=== PATIENT | female | born 2000 ===

== ENCOUNTER 2021-10-04 18:16 | Outpatient (CLI) | payer SELFPAY ==
[2021-10-04 19:30] VITALS: BP 112/71
[2021-10-04 19:55] LABS: BILIRUBIN,URINE NEGATIVE (NEGATIVE); CLARITY,URINE CLEAR; COLOR,URINE YELLOW; GLUCOSE, URINE (UA) NEGATIVE (NEGATIVE); KETONES,URINE TRACE (NEGATIVE); LEUKOCYTE ESTERASE ,URINE TRACE (NEGATIVE); NITRITE,URINE POSITIVE (NEGATIVE); PROTEIN,URINE NEGATIVE (NEGATIVE)
[2021-10-04 20:05] LABS: BACTERIA,URINE LARGE /HPF
[2021-10-04] MEDS ORDERED: ACETAMINOPHEN 500 MG TAB (TYLENOL) ONE (20:07)
[2021-10-04] MEDS ORDERED: ACETAMINOPHEN 500 MG TAB (TYLENOL) PO ONE (20:12)
--- NOTE | 2021-10-05 08:34 | Physician Query-Final Dx ---
Clinic Account Progress/Dx Physician Query: Please give diagnosis Please include # weeks gestation Date of Service Oct 04, 2021 at 18:16 SOMMER,OctOct 05, 2021 08:34
== END 2021-10-04 20:43 ==
LOC: WSo 18:16 → LDRP 18:16 → WSo 20:43
PROVIDERS: ATTEND Family Medicine
DX: O26.899 Other specified pregnancy related conditions, unspecified trimester (principal); R10.9 Unspecified abdominal pain; Z3A.00 Weeks of gestation of pregnancy not specified
CPT/HCPCS: 81000; 87088; G0463; 99214

== ENCOUNTER 2021-10-10 00:29 | Inpatient (IN) | payer SELFPAY ==
[2021-10-10] VITALS (29 sets, daily range): BP systolic 77–141; BP diastolic 44–107
[~2021-10-10] VITALS: Ht 154.9 cm; Wt 74.5 kg
[2021-10-10] MEDS ORDERED: MINERAL OIL CONCENTRATE 99.9% 15 ML UDC TOP PRN (01:45)
[2021-10-10] MEDS ORDERED: D5 LR IV SOLUTION 1,000 ML IV ONE (01:48)
[2021-10-10 01:52] LABS: BILIRUBIN,URINE NEGATIVE (NEGATIVE); CLARITY,URINE CLEAR; COLOR,URINE YELLOW; GLUCOSE, URINE (UA) NEGATIVE (NEGATIVE); KETONES,URINE NEGATIVE (NEGATIVE); LEUKOCYTE ESTERASE ,URINE 1+ (NEGATIVE); NITRITE,URINE NEGATIVE (NEGATIVE); PROTEIN,URINE NEGATIVE (NEGATIVE)
[2021-10-10] MEDS: D5 LR IV SOLUTION 1,000 ML IV SCH ×2 (02:09→08:57)
[2021-10-10 02:10] LABS: BACTERIA,URINE NEGATIVE /HPF; WBC,URINE 0-2 /HPF
[2021-10-10 02:32] LABS: BASOPHILS % (AUTO) 1 % (0-10); EOSINOPHILS # (AUTO) 0.2 10^3/uL (0.0-0.3); EOSINOPHILS % (AUTO) 2 % (0-10); HEMATOCRIT 32 % (35-52); HEMOGLOBIN 9.8 g/dL (11.5-16.0); LYMPHOCYTES # (AUTO) 1.2 10^3/uL (1.0-4.0); LYMPHOCYTES % (AUTO) 14 % (12-44); MEAN CORPUSCULAR HEMOGLOBIN 27 pg (25-34); MEAN CORPUSCULAR HGB CONC 31 g/dL (32-36); MEAN CORPUSCULAR VOLUME 88 fL (80-99); MEAN PLATELET VOLUME 10.6 fL (9.0-12.2); MONOCYTES # (AUTO) 0.4 10^3/uL (0.0-1.0); MONOCYTES % (AUTO) 5 % (0-12); NEUTROPHILS # (AUTO) 6.7 10^3/uL (1.8-7.8); NEUTROPHILS % (AUTO) 78 % (42-75); PLATELET COUNT 183 10^3/uL (130-400); WHITE BLOOD COUNT 8.7 10^3/uL (4.3-11.0)
[2021-10-10] MEDS ORDERED: BUTORPHANOL INJ 2 MG/ML (STADOL) VIAL ONE (04:22)
[2021-10-10] MEDS: BUTORPHANOL INJ 2 MG/ML (STADOL) VIAL IV PRN ×2 (04:24→09:30)
[2021-10-10] MEDS ORDERED: PREN-8 PO (05:44)
[2021-10-10] MEDS ORDERED: CEPH500T PO (05:45)
[2021-10-10] MEDS ORDERED: CATHETER FLUSH 10 ML SYR IV SCH (06:00)
[2021-10-10] MEDS ORDERED: OXYTOCIN PRE-MIX DRIP 500 ML IV SCH ×2 (07:00→12:30)
--- NOTE | 2021-10-10 07:50 | History & Physical-OB ---
OB - Chief Complaint & HPI Date/Time Date of Admission: Date of Admission: Oct 10, 2021 at 01:40 Date seen by a Provider: Oct 10, 2021 Time Seen by a Provider: 08:00 Chief Complaint/History OB-Reason for Admission/Chief: Rupture of Membranes (at term) Hx : 3 Hx Para: 2 Expected Date of Delivery: Oct 19, 2021 Gestational Age in Weeks: 38 Gestational Age in Days: 5 Admission Nurse Assessment Rev: Yes History of Labs Negative Allergies and Home Medications Allergies Coded Allergies: No Known Drug Allergies (Unverified , 10/04/21) Patient Home Medication List Home Medication List Reviewed: Yes Cephalexin (Cephalexin) 500 Mg Tablet, 500 MG PO TID, (Reported) Entered as Reported by: ROSA MERCEDES on 10/10/2145 Last Action: New Order Vit W-Ca,Fe,FA(<1 mg) ( Formula) 1 Each Tablet, 1 EACH PO DAILY, (Reported) Entered as Reported by: ROSA MERCEDES on 10/10/2144 Last Action: New Order OB - History Hx of Present Care: Yes Ultrasounds: Normal mid trimester US Obstetrical Complications: None Medical Complications: None Patient Past Medical History no chronic medical problems Social History/Family History 2nd Hand Smoke Exposure: No Immunizations Influenza Vaccine Up-to-Date: Yes; Up-to-Date First/Initial COVID19 Vaccine: 1 dose in Jul 2021 COVID19 Vaccine Finisher Hand: [employer] OB - Admission Exam Physical Exam Vitals: Vital Signs 10/10/21 10/10/21 10/10/21 02:00 04:00 06:11 Temp 35.8 Pulse 77 Resp 18 B/P (MAP) 120/71 (87) Pulse Ox 99 O2 Delivery Room Air HEENT: Moist Membranes Heart: Rhythm Normal Lungs: Clear Abdomen: Gravid Cervical Dilatation: 2cm (on presentation) Effacement: 75% Station: -3 Membranes: Ruptured Amniotic Fluid: Clear Heart Rate: 140's Accelerations: Accelerations Present Decelerations: No Decelerations Short Term Variability: Present Contractions on Admission: < 5 Minutes Apart Intensity: Mild Labs Laboratory Tests Test 10/10/21 00:40 10/10/21 01:00 10/10/21 02:22 Range/Units Urine Color YELLOW Urine Clarity CLEAR Urine pH 7.0 5-9 Urine Specific [place] 1.015 L 1.016-1.022 Urine Protein NEGATIVE NEGATIVE Urine Glucose (UA) NEGATIVE NEGATIVE Urine Ketones NEGATIVE NEGATIVE Urine Nitrite NEGATIVE NEGATIVE Urine Bilirubin NEGATIVE NEGATIVE Urine Urobilinogen 0.2 < = 1.0 MG/DL Urine Leukocyte Esterase 1+ H NEGATIVE Urine RBC (Auto) 3+ H NEGATIVE Urine RBC 10-25 H /HPF Urine WBC 0-2 /HPF Urine Squamous Epithelial Cells 2-5 /HPF Urine Crystals NONE /LPF Urine Bacteria NEGATIVE /HPF Urine Casts NONE /LPF Urine Mucus NEGATIVE /LPF Urine Culture Indicated NO Membranes Rupture POSITIVE White Blood Count 8.7 4.3-11.0 10^3/uL Red Blood Count 3.63 L 3.80-5.11 10^6/uL Hemoglobin 9.8 L 11.5-16.0 g/dL Hematocrit 32 L 35-52 % Mean Corpuscular Volume 88 80-99 fL Mean Corpuscular Hemoglobin 27 25-34 pg Mean Corpuscular Hemoglobin Concent 31 L 32-36 g/dL Red Cell Distribution Width 13.4 10.0-14.5 % Platelet Count 183 130-400 10^3/uL Mean Platelet Volume 10.6 9.0-12.2 fL Immature Granulocyte % (Auto) 1 % Neutrophils (%) (Auto) 78 H 42-75 % Lymphocytes (%) (Auto) 14 12-44 % Monocytes (%) (Auto) 5 0-12 % Eosinophils (%) (Auto) 2 0-10 % Basophils (%) (Auto) 1 0-10 % Neutrophils # (Auto) 6.7 1.8-7.8 10^3/uL Lymphocytes # (Auto) 1.2 1.0-4.0 10^3/uL Monocytes # (Auto) 0.4 0.0-1.0 10^3/uL Eosinophils # (Auto) 0.2 0.0-0.3 10^3/uL Basophils # (Auto) 0.0 0.0-0.1 10^3/uL Immature Granulocyte # (Auto) 0.1 0.0-0.1 10^3/uL OB - Assessment/Plan/Diagnosis Assessment Assessment: rupture of membranes (at term) Admission Dx 1. IUP at term 38 weeks with SROM Admission Status: Inpatient Order (span 2 midnights) Reason for Inpatient Admission: L&D Plan Plan: Other Other Plan -Pitocin -Stadol for pain relief -she doesn't desire epidural RAFAEL DAVIS MD Oct 10, 2021 07:50
[2021-10-10] MEDS ORDERED: fentaNYL 2 mcg/ml BUPIVA 0.125 0 ML ONE (08:54)
[2021-10-10] MEDS ORDERED: LACTATED RINGERS 1,000 ML IV ONE (08:54)
--- NOTE | 2021-10-10 12:27 | OB Labor & Delivery Record ---
L&D History Date of Service Date of Service: Oct 10, 2021 History Expected Date of Delivery: Oct 19, 2021 Gestational Age in Weeks: 38 Hx : 3 Hx Para: 3 Complications Events: Routine care Operative Indications (Cesarea: N/A-Vaginal Delivery Intrapartal Events: None L&D Stage1 Stage One Onset of Labor - Date: Oct 09, 2021 Onset of Labor - Time: 23:00 Monitors and Tracing Monitor Mode: External Heart Rate: 125 Monitor Accelerations: Uniform Monitor Decelerations: None Station: -2 Senior Living Variability: Average (6-10) Short Term Variability: Present Presentation: Vertex Vital Signs VS - Last 72 Hours, by Label 10/10/21 10/10/21 10/10/21 10/10/21 01:00 02:00 03:00 04:00 Temp 36.0 36.0 35.8 Pulse 126 126 94 75 Resp 18 18 18 18 B/P (MAP) 117/67 (84) 121/60 (80) 114/73 (87) Pulse Ox 99 99 O2 Delivery Room Air Room Air Room Air Room Air 10/10/21 10/10/21 10/10/21 10/10/21 05:00 06:00 06:11 07:40 Temp 36.0 Pulse 80 74 77 85 Resp 18 18 18 18 B/P (MAP) 116/73 (87) 101/61 (74) 120/71 (87) 109/70 (83) O2 Delivery Room Air Room Air Room Air Room Air 10/10/21 10/10/21 10/10/21 10/10/21 07:55 08:25 08:40 08:55 Pulse 85 93 104 110 Resp 20 20 20 20 B/P (MAP) 141/107 (118) 106/63 (77) 109/65 (80) 115/77 (90) O2 Delivery Room Air Room Air Room Air Room Air 10/10/21 10/10/21 10/10/21 10/10/21 09:10 09:25 09:40 09:55 Pulse 83 93 68 81 Resp 20 20 20 20 B/P (MAP) 113/70 (84) 103/56 (72) 77/47 (57) 101/54 (70) O2 Delivery Room Air Room Air Room Air Room Air 1/05/2410/10/21 10/10/21 10:10 10:28 10:41 Temp 36.2 Pulse 77 83 83 Resp 20 20 20 B/P (MAP) 97/54 (68) 104/54 (71) 127/74 (91) O2 Delivery Room Air Room Air Room Air Signs of Distress by FHT Signs of Distress no Rupture of Membranes Spontaneous Ruture of Membrane: Yes Amniotic Membrane Rupture Time: 2340 Amniotic Membrane Fluid Desc.: Clear Induction/Anesthesia Medications Stadol 1mg x 2 doses L&D Stage2 Stage Two Stage II Date: Oct 10, 2021 Stage II Time: 11:19 Monitors and Tracing Monitor Mode: External Heart Rate: 125 Monitor Accelerations: Uniform Monitor Decelerations: None Food Service Utility Worker Variability: Average (6-10) Short Term Variability: Present Position: Left Occiput Anterior Presentation: Vertex Signs of Distress by FHT Signs of Distress no Cord Descript/Complications Cord Vessel Description: 3 Vessels Delivery Type Delivery Method: Spontaneous Vaginal Anterior Shoulder: Left Episiotomy/Perineal Laceration Laceraction(s)/Extensions: No Condition of Infant Delivery 1 minute Comment: 8 5 minute Comment: 9 Condition of Condition of : Living Exam: No Observed Abnormalities Resuscitation Resuscitation: N/A - Spontaneous Resp L&D Stage3 Stage Three Stage III Date: Oct 10, 2021 Stage III Time: 11:26 Pictocin Pitocin Administration mu/min: 6 Pitocin ml/hr: 6 Placenta Delivery Placenta Delivery: Spontaneous Delivery Summary Summary Estimated blood loss (mL): 150 Condition of Delivery Examined: Cervix Examined Post Hemorrhage: No Intervention Required none RAFAEL DAVIS MD Oct 10, 2021 12:27
[2021-10-10] MEDS ORDERED: BENZOCAINE/MENTHOL (DERMOPLAST) 56 ML CAN TP PRN (12:30)
[2021-10-10] MEDS ORDERED: WITCH HAZEL(TUCKS) 40 EA JAR TOP PRN (12:30)
[2021-10-10] MEDS ORDERED: TETANUS,DIPTH,PERTUSS P/F (BOOSTRIX) 0.5 ML VIAL IM ONE (12:30)
[2021-10-10] MEDS ORDERED: NALOXONE 0.4 MG/ML 1 ML (NARCAN) VIAL IV PRN (12:30)
[2021-10-10] MEDS ORDERED: MEASLES,MUMPS,RUBELLA 1 EA INJ SQ ONE (12:30)
[2021-10-10] MEDS: ACETAMINOPHEN 500 MG TAB (TYLENOL) PO SCH ×2 (18:03→23:44)
[2021-10-10] MEDS: IBUPROFEN 600 MG (MOTRIN) TAB PO SCH ×2 (18:03→23:44)
[2021-10-10] MEDS: CATHETER FLUSH 10 ML SYR IV SCH ×2 (19:59→21:23)
[2021-10-10] MEDS: DOCUSATE SODIUM 100 MG (COLACE) CAP PO SCH (21:19)
[2021-10-11 01:19] VITALS: BP 98/52
[2021-10-11] MEDS: CATHETER FLUSH 10 ML SYR IV SCH (02:54)
[2021-10-11 05:42] VITALS: BP 106/65
[2021-10-11] MEDS: ACETAMINOPHEN 500 MG TAB (TYLENOL) PO SCH (05:44)
[2021-10-11] MEDS: IBUPROFEN 600 MG (MOTRIN) TAB PO SCH ×2 (05:44→11:49)
[2021-10-11 06:10] LABS: BASOPHILS % (AUTO) 0 % (0-10); EOSINOPHILS # (AUTO) 0.2 10^3/uL (0.0-0.3); EOSINOPHILS % (AUTO) 2 % (0-10); HEMATOCRIT 28 % (35-52); HEMOGLOBIN 8.7 g/dL (11.5-16.0); LYMPHOCYTES # (AUTO) 1.7 10^3/uL (1.0-4.0); LYMPHOCYTES % (AUTO) 15 % (12-44); MEAN CORPUSCULAR HEMOGLOBIN 27 pg (25-34); MEAN CORPUSCULAR HGB CONC 31 g/dL (32-36); MEAN CORPUSCULAR VOLUME 86 fL (80-99); MEAN PLATELET VOLUME 10.1 fL (9.0-12.2); MONOCYTES # (AUTO) 0.6 10^3/uL (0.0-1.0); MONOCYTES % (AUTO) 5 % (0-12); NEUTROPHILS # (AUTO) 8.9 10^3/uL (1.8-7.8); NEUTROPHILS % (AUTO) 77 % (42-75); PLATELET COUNT 228 10^3/uL (130-400); WHITE BLOOD COUNT 11.5 10^3/uL (4.3-11.0)
--- NOTE | 2021-10-11 08:35 | Discharge Summary ---
Diagnosis/Chief Complaint Date of Admission Oct 10, 2021 at 01:40 Date of Discharge October 11, 2021 Admission Diagnosis Admission Diagnosis 1. Intrauterine at 38 weeks gestation 2. Anemia most likely iron deficiency from Discharge Diagnosis 1. Intrauterine at 38 weeks gestation 2. 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 Her EDC is October 19, 2021 which correlated to 38 weeks and 5 days gestation. Her GBS status at 36 weeks gestation was noted to be negative. Discharge Summary-OBS Procedures 1. Spontaneous vaginal delivery Discharge Physical Examination Allergies: Coded Allergies: No Known Drug Allergies (Unverified , 10/04/21) Vitals & I&Os Intake and Output 10/11/21 00:00 Intake Total 500 ml Balance 500 ml Vital Sign - Last 12Hours Date Time Temp Pulse Resp B/P (MAP) Pulse Ox O2 Delivery O2 Flow Rate FiO2 10/11/21 05:42 36.5 84 81 106/65 (79) Room Air 10/10/21 02:00 99 General Appearance: No Acute Distress Respiratory: Clear to Auscultation Cardiovascular: Regular Rate Abdominal: Normal Bowel Sounds, Soft (with uterus firm) Neuro: Normal Speech Hospital Course Was the Problem List Reviewed?: Yes following admission on October 10, 2021 patient underwent routine antepartum care orders. She continued to contract and ultimately went on to completion. She delivered over an intact perineum at 1119 on October 10, 2021. Patient delivered a term viable female with Apgars of 8 at 1 minute and 9 at 5 minutes. See labor and delivery note for full details. Following delivery she underwent routine care orders. There was no complications of urinary remainder of hospital stay. She tolerated regular diet. She was without any chest pain or leg pain. Her hemoglobin in the morning of October 11 was 8.7 compared to admission of 9.8. She was instructed to utilize iron on an outpatient basis daily. She was eager for dismissal. She will follow-up with Dr. Davis in 6 weeks at [facility]. Labs Laboratory Tests 10/11/21 05:31: White Blood Count 11.5H, Red Blood Count 3.26L, Hemoglobin 8.7L, Hematocrit 28L, Mean Corpuscular Volume 86, Mean Corpuscular Hemoglobin 27, Mean Corpuscular Hemoglobin Concent 31L, Red Cell Distribution Width 13.4, Platelet Count 228, Mean Platelet Volume 10.1, Immature Granulocyte % (Auto) 1, Neutrophils (%) (Auto) 77H, Lymphocytes (%) (Auto) 15, Monocytes (%) (Auto) 5, Eosinophils (%) (Auto) 2, Basophils (%) (Auto) 0, Neutrophils # (Auto) 8.9H, Lymphocytes # (Auto) 1.7, Monocytes # (Auto) 0.6, Eosinophils # (Auto) 0.2, Basophils # (Auto) 0.0, Immature Granulocyte # (Auto) 0.1 Discharge Instructions to patient/family Please see electronic discharge instructions given to patient. Discharge Medications Reviewed and agree with Discharge Medication list on patient's Discharge Instruction sheet RAFAEL DAVIS MD Oct 11, 2021 08:35
--- NOTE | 2021-10-11 08:46 | Discharge Inst-Women's Service ---
Discharge Inst-Women's Serv Depart Medication/Instructions New, Converted or Re-Newed RX: Other Instructions May take [id number] ibuprofen 2 or 3 tablets every 6 hours if needed for uterine cramping. Also begin iron sulfate 325mg tablets which he can buy [id number]. Take 1 iron pill daily for the next month. Problems Reviewed?: Yes Consults/Follow Up Additional Follow Up: Yes (with Dr. Davis in 6 weeks.) Activity Activity: Activity as Tolerated Driving Instructions: No Driving for 1 Week Nothing Inside Vagina: No [place] (for 6 weeks) Diet Discharge Diet: Regular Diet Return to The Hospital For: as below Symptoms to Report to : Swelling Increased, Pain Increased, Fever Over 101 Degrees F, Vaginal Discharge Foul For Any Problems or Questions: Contact Your Physician RAFAEL DAVIS MD Oct 11, 2021 08:46
[2021-10-11 11:49] VITALS: BP 112/73
[2021-10-11] MEDS: DOCUSATE SODIUM 100 MG (COLACE) CAP PO SCH (11:49)
== END 2021-10-11 14:20 | disposition home or self-care (01) | DRG 807 ==
LOC: WSo 00:29 → LDRP 00:35 → WSo 01:40 → LDRP 01:40
PROVIDERS: ADMIT Family Medicine; ATTEND Family Medicine
PROC: 10E0XZZ Delivery of Products of Conception, External Approach (ICD-10-PCS; principal; 2021-10-10)
DX: O99.02 Anemia complicating childbirth (principal); Z37.0 Single live birth; Z3A.38 38 weeks gestation of pregnancy; D50.9 Iron deficiency anemia, unspecified
CPT/HCPCS: 36415; 81000; 84112; 85025; 86850; 86900; 86901; 99212